=== PATIENT | male | born 1980 | race Caucasian/White ===

== ENCOUNTER 2019-11-23 07:39 | Day surgery (SDC) | payer OTHER ==
[~2019-11-23] VITALS: Ht 165.1 cm; Wt 66.7 kg
[2019-11-23 09:03] VITALS: BP 128/78
[2019-11-23] MEDS ORDERED: LACTATED RINGERS 1,000 ML IV SCH (09:23)
[2019-11-23] MEDS ORDERED: BUPIVACAINE/PF-EPI 0.5% 1:200K ONE (09:26)
[2019-11-23] MEDS ORDERED: BACITRACIN OINT 500U/GM, 15 GM ONE (09:27)
[2019-11-23] MEDS ORDERED: EPINEPHRINE 1 MG/ML, 1ML ONE (09:27)
[2019-11-23] MEDS ORDERED: LIDOCAINE-MPF 1%, 2ML INFIL ONE (09:30)
[2019-11-23] MEDS ORDERED: CHLORHEXIDINE 15 ML UDC MM ONE (09:30)
[2019-11-23] MEDS ORDERED: FENTANYL PF 100 MCG/2ML ONE (09:32)
[2019-11-23] MEDS ORDERED: MIDAZOLAM 1 MG/ML, 2ML ONE (09:33)
[2019-11-23] MEDS ORDERED: SUCCINYLCHOLINE 20 MG/ML, 10ML ONE (09:33)
[2019-11-23] MEDS ORDERED: CEFAZOLIN 1,000 MG ONE ×2 (09:33)
[2019-11-23] MEDS ORDERED: ONDANSETRON 2MG/ML, 2ML ONE (09:33)
[2019-11-23] MEDS ORDERED: DEXAMETHASONE 4 MG/ML, 1ML ONE ×2 (09:33)
[2019-11-23] MEDS ORDERED: ROCURONIUM 10MG/ML,5ML ONE (09:33)
[2019-11-23] MEDS ORDERED: LIDOCAINE-MPF 2% ,5ML ONE (09:33)
[2019-11-23] MEDS ORDERED: PROPOFOL 10 MG/ML, 20ML ONE (09:33)
[2019-11-23 09:47] LABS: BASOPHILS # (AUTO) 0.04 x10^3/uL (0-0.1); BASOPHILS % (AUTO) 1 % (0-1); EOSINOPHILS # (AUTO) 0.15 x10^3/uL (0-0.4); EOSINOPHILS % (AUTO) 2 % (1-7); LYMPHOCYTES # (AUTO) 1.73 x10^3/uL (1-3.4); LYMPHOCYTES % (AUTO) 25 % (22-44); MD NO; MEAN CORPUSCULAR HEMOGLOBIN 31.4 pg (27.5-34.5); MEAN CORPUSCULAR HGB CONC 33.8 g/dL (33.2-36.2); MEAN PLATELET VOLUME 8.5 fL (7.4-10.4); MONOCYTES % (AUTO) 9 % (2-9); NEUTROPHILS # (AUTO) 4.54 x10^3/uL (1.8-6.8); NEUTROPHILS % (AUTO) 64 % (42-75); PLATELET COUNT 251 x10^3/uL (130-400); RED BLOOD COUNT 5.44 x10^6/uL (4.38-5.82); RED CELL DISTRIBUTION WIDTH 12.6 % (9.4-14.8)
[2019-11-23 09:55] LABS: INTERNATIONAL NORMALIZED RATIO 0.94 (0.93-1.1)
[2019-11-23 09:58] LABS: ALANINE AMINOTRANSFERASE 64 U/L (12-78); ANION GAP 6 mmol/L (5-15); CALCIUM 9.1 mg/dL (8.5-10.1); CHLORIDE 108 mmol/L (98-107); CREATININE 1.02 mg/dL (0.7-1.3)
[2019-11-23 10:00] LABS: ALKALINE PHOSPHATASE 101 U/L (45-117); BILIRUBIN,TOTAL 0.3 mg/dL (0.2-1.0); TOTAL PROTEIN 7.9 g/dL (6.4-8.2)
[2019-11-23] MEDS ORDERED: FENTANYL PF 100 MCG/2ML IV PRN (10:00)
[2019-11-23] MEDS ORDERED: ACETAMINOPHEN 325 MG TABLET PO PRN (10:00)
[2019-11-23] MEDS ORDERED: HYDROmorphone 1 MG/ML, 1ML INJ IVPush PRN (10:00)
[2019-11-23] MEDS ORDERED: LORazepam 2 MG/ML, 1ML IVPush PRN (10:00)
[2019-11-23] MEDS ORDERED: PROMETHAZINE 25 MG/ML, 1ML IVPush PRN (10:00)
[2019-11-23] MEDS ORDERED: OXYcodone 5 MG/5 ML ORAL.SOL UDC PO PRN (10:00)
[2019-11-23] MEDS ORDERED: ONDANSETRON 2MG/ML, 2ML IVPush PRN (10:00)
[2019-11-23] MEDS ORDERED: NEOSTIGMINE 1 MG/ML, 10ML ONE (11:26)
[2019-11-23] MEDS ORDERED: FENTANYL PF 250 MCG/5ML ONE (11:42)
[2019-11-23] MEDS: MEPERIDINE/PF 25MG/0.5ML IVPush PRN ×2 (14:10→14:30)
[2019-11-23] MEDS ORDERED: ACETAMINOPHEN 650 MG/20.3 ML UDC ONE (14:22)
[2019-11-23] MEDS ORDERED: KETOROLAC 30 MG/1 ML ONE (14:46)
[2019-11-23] MEDS ORDERED: KETOROLAC 30 MG/1 ML IV ONE (15:00)
== END 2019-11-23 16:00 | disposition home or self-care (01) ==
LOC: OUT 07:39
PROVIDERS: ATTEND Surgery
DX: C43.59 Malignant melanoma of other part of trunk (principal); C77.3 Secondary and unspecified malignant neoplasm of axilla and upper limb lymph nodes; F17.210 Nicotine dependence, cigarettes, uncomplicated; Z79.01 Long term (current) use of anticoagulants; Z79.899 Other long term (current) drug therapy; Z83.3 Family history of diabetes mellitus; Z82.49 Family history of ischemic heart disease and other diseases of the circulatory system; Z80.1 Family history of malignant neoplasm of trachea, bronchus and lung; Z80.3 Family history of malignant neoplasm of breast; Z80.42 Family history of malignant neoplasm of prostate
CPT/HCPCS: 14000; 21936; 36415; 38525; 78195; 80053; 85025; 85610; 88305; 88307; 93005; A9541; C1729; J0330; J0690; J1100; J1885; J2175; J2250; J2405; J2704; J2710; J3010; J7120; U0001; J0171